=== PATIENT | male | born 1970 | race Caucasian/White ===

== ENCOUNTER 2016-08-16 14:13 | Emergency (ER) | payer MEDICAID ==
[~2016-08-16] VITALS: Ht 175.3 cm; Wt 74.8 kg
[2016-08-16 14:13] VITALS: BP 133/87; PULSE 67; RESP 19; TEMP 97.4; O2SAT 99
--- NOTE | 2016-08-16 14:13 | NUR ---
BROUGHT IN BY LOIDA RODRIGUEZ, PLACED IN BED #5 AND TRIAGED. REPORT GIVEN TO KAIT
--- NOTE | 2016-08-16 14:15 | NUR ---
ER at bedside examining patient.
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
--- NOTE | 2016-08-16 14:50 | NUR ---
Patient transported to radiology via wheelchair, accompanied by rad staff.
--- NOTE | 2016-08-16 15:06 | NUR ---
Pt returned from rad dept tolerated well.
--- NOTE | 2016-08-16 15:10 | NUR ---
Pt's pain continuing to resolve
[2016-08-16 15:39] VITALS: BP 145/97; PULSE 62; RESP 16; TEMP 97.5; O2SAT 100
--- NOTE | 2016-08-16 15:41 | NUR ---
Patient given written and verbal discharge instructions and verbalizes understanding. ER MD discussed with patient the results and treatment provided. Given copies of tests performed in ER. Patient in stable condition. ID arm band removed. Rx of Motrin given. Patient educated on pain management and to follow up with PMD. Pain Scale 3/10. Opportunity for questions provided and answered. Patient will return to [facility] for the night via foot.
== END 2016-08-16 15:39 | disposition home or self-care (01) ==
LOC: SED 14:13
DX: R07.89 Other chest pain (principal); I10 Essential (primary) hypertension
CPT/HCPCS: 71020-TC; 99284